=== PATIENT | male | born 1975 | race Hispanic/Latino ===

== ENCOUNTER 2020-04-08 09:47 | Observation (INO) | payer OTHER ==
[~2020-04-08] VITALS: Ht 175.3 cm; Wt 100.5 kg
--- NOTE | 2020-04-08 09:50 | NUR ---
TO ROOM VIA EMS.
[2020-04-08 10:11] LABS: HEMATOCRIT 47.7 % (39.0-50.0); HEMOGLOBIN 15.7 g/dl (14.0-18.0); IMMATURE GRANULOCYTES 0.5 % (0.0-5.0); MEAN CELL VOLUME 91.2 fL CALC (80.0-100.0); MEAN CORPUSCULAR HGB CONC 32.9 g/dL CAL (32.0-36.0); NEUT# 8.06 thou/uL (1.82-7.42); RED BLOOD COUNT 5.23 mill/uL (4.70-6.10); RED CELL DISTRI WIDTH 14.1 % (11.5-15.5)
[2020-04-08] MEDS ORDERED: AMLODIPINE BESYL5 MG PO (10:28)
--- NOTE | 2020-04-08 10:35 | NUR ---
PT RESTING IN BED. IV MEDS INFUSING WITHOUT DIFFICULTY. STABLE ON MONITOR.
[2020-04-08 10:36] LABS: ALBUMIN 4.2 g/dL (3.2-5.0); ALKALINE PHOSPHATASE 51 u/l (38-126); ANION GAP 15 (6-22 (CALC)); BILIRUBIN, TOTAL 0.7 mg/dL (0.0-1.4); BUN 16 mg/dL (9-20); BUN/CREATININE RATIO 16 (12-20 (CALC)); CARBON DIOXIDE 21 mmol/l (22-30); CHLORIDE 102 mmol/l (95-108); GFR > 60 ML/MIN (>=60 (CALC)); GFR FOR AFR.AMER. > 60 ML/MIN (>=60 (CALC)); LIPASE 349 u/l (23-300); POTASSIUM 3.9 mmol/l (3.5-5.1); SGOT/AST 59 u/l (17-59); SODIUM 133 mmol/l (137-146); TOTAL PROTEIN 7.7 g/dL (6.3-8.2)
[2020-04-08 10:37] LABS: ACT PARTIAL THROMBO TIME 27.6 SECONDS (20.0-32.5); PROTHROMBIN TIME 10.3 SECONDS (9.0-12.5)
[2020-04-08 10:58] LABS: D-DIMER 0.48 mg/L (0.19-0.60)
--- NOTE | 2020-04-08 11:52 | NUR ---
IV MEDS CONTINUE TO INFUSE. NO DISTRESS NOTED. BREATHING IMPROVED. CALL LIGHT WITHIN REACH.
--- NOTE | 2020-04-08 13:01 | NUR ---
RECIEVED REPORT FROM JUNE, RN
--- NOTE | 2020-04-08 13:02 | NUR ---
REPORT GIVEN TO SANDY GROSS. PT ADMITTED TO [facility] [id number].
--- NOTE | 2020-04-08 13:16 | NUR ---
PT ARRIVED TO [facility] ROOM [id number] ACCOMPAINED BY JUNE IN STABLE CONDITION. INTRODUCED SELF TO PT AND DISCUSSED POC. PT IS A/O X3 AND KHMER SPEAKING ONLY, SUZY AT BEDSIDE TO ASSIST WITH TRANSLATION. ASSESSMENT AND VITALS COMPLETED. BP 134/72, HR 84 O2 95% ON 2L NC. RESPIRATIONS ARE EVEN AND UNLABORED. LUNG SOUNDS CLEAR. HEART RHYTHM NORMAL WITH TELE IN PLACE. BOWEL SOUNDS ARE ACTIVE, LAST REPORTED BM 04/08/20. RADIAL AND PEDAL PULSES ARE STRONG. #20G IN LEFT HAND FLUSHED, SITE APPEARS HEALTHY AND PATENT. SKIN IS WARM/DRY AND INTACT WITH NO BREAKDOWN NOTED. GUN SYNCHRONIZER INFORMED THAT PT WAS TESTED POSITIVE AT A MEDICAL CENTER IN [place]. PT DENIES OF ANY PAINS OR DISCOMFORTS AT THIS TIME.PT ORIENTED TO ROOM AND CALL LIGHT SYSTEM. PT DENIES ANY ALLERGIES. ALLERGY BAND APPLIED. ALL SAFETY PRECAUTIONS ARE IN PLACE WITH CALL LIGHT IN REACH. WILL CONTINUE TO MONITOR.
[2020-04-08 13:50] VITALS: BP 134/72
--- NOTE | 2020-04-08 16:48 | NUR ---
PT SLEEPING IN LOW FOWLERS POSITION. RESPIRATIONS ARE EVEN AND UNLABORED ON 2L NC. NO SIGNS OF ANY PAINS OR DISCOMFORTS. ALL SAFTEY AND ISOALTION PRECAUTIONS ARE IN PLACE WITH CALL LIGHT IN REACH. WILL CONTINUE TO MONITOR
--- NOTE | 2020-04-08 19:55 | NUR ---
PHYSICAL ASSESMENT COMPLETE. PT CURRENTLY DENIES PAIN OR DISCOMFORT. SCHEDULED MEDICATIONS AND PRN MEDICATION ADMINISTERED, SEE E-MAR. PT DENIES ANY NEEDS AT THIS TIME. PLAN OF CARE REVIEWED, PT DENIES QUESTIONS, VERBALIZES UNDERSTANDING. ITEMS WITHIN REACH, BED LOCKED IN LOW POSITION W/ BEDRAILS UP X2. CALL SEGURA WITHIN REACH, AGREES TO CALL PRN.
[2020-04-08 20:00] VITALS: BP 131/73
[2020-04-09] VITALS: BP 149/94
--- NOTE | 2020-04-09 00:03 | NUR ---
PT LAYING IN BED WITH EYES CLOSED, APPEARS TO BE SLEEPING, APPEARS COMFORTABLE AND IN NO DISTRESS. RESPIRATIONS REGULAR AND UNLABORED. ITEMS REMAIN WITHIN REACH, CALL SEGURA REMAINS WITHIN REACH. BED REMAINS LOCKED AND IN LOW POSITION WITH BEDRAILS UP X2. WILL CONTINUE TO MONITOR.
--- NOTE | 2020-04-09 03:59 | NUR ---
PT RESTING IN BED, NO SIGNS OF DISTRESS NOTED, RESP EVEN AND UNLABORED. PT VOICES NO NEEDS OR COMPLAINTS AT THIS TIME. CALL LIGHT IN REACH, CONTINUE TO MONITOR.
[2020-04-09 04:00] VITALS: BP 140/71
[2020-04-09 05:48] LABS: HEMATOCRIT 48.8 % (39.0-50.0); HEMOGLOBIN 15.5 g/dl (14.0-18.0); IMMATURE GRANULOCYTES 0.4 % (0.0-5.0); MEAN CELL VOLUME 93.7 fL CALC (80.0-100.0); MEAN CORPUSCULAR HGB 29.8 pG CALC (26.0-32.0); MEAN CORPUSCULAR HGB CONC 31.8 g/dL CAL (32.0-36.0); NEUT# 10.29 thou/uL (1.82-7.42); RED BLOOD COUNT 5.21 mill/uL (4.70-6.10); RED CELL DISTRI WIDTH 13.8 % (11.5-15.5)
[2020-04-09 05:57] LABS: ALBUMIN 3.8 g/dL (3.2-5.0); ALKALINE PHOSPHATASE 51 u/l (38-126); BILIRUBIN, TOTAL 0.5 mg/dL (0.0-1.4); BUN 23 mg/dL (9-20); BUN/CREATININE RATIO 24 (12-20 (CALC)); CHLORIDE 104 mmol/l (95-108); GFR > 60 ML/MIN (>=60 (CALC)); GFR FOR AFR.AMER. > 60 ML/MIN (>=60 (CALC)); SGOT/AST 53 u/l (17-59); TOTAL PROTEIN 6.7 g/dL (6.3-8.2)
[2020-04-09 06:01] LABS: SODIUM 140 mmol/l (137-146)
[2020-04-09 06:02] LABS: ANION GAP 13 (6-22 (CALC)); CARBON DIOXIDE 28 mmol/l (22-30); POTASSIUM 5.2 mmol/l (3.5-5.1)
--- NOTE | 2020-04-09 08:08 | NUR ---
PT CONSENTED TO RECEIVE PNEUMONIA VAX, BUT BASED ON PT AGE AND COMORBIDITIES/RISK FACTORS, PT IS NOT A CANDIDATE UNTIL AGE 65.
[2020-04-09 08:50] VITALS: BP 135/69
--- NOTE | 2020-04-09 08:50 | NUR ---
PT LAYING IN BED. A&O X3. O2 VIA NC @2L IN PLACE, SHALLOW BREATHING NOTED. FLUSHED IN APPEARANCE, LOW GRADE TEMP OF 99.0. COVERS REMOVED. IS DEVICE GIVEN TO PT, GOAL SET AT 1500, PT DEMONSTRATES PROPER USE OF DEVICE. PT ENCOURAGED TO LAY IN PRONE POSITION. EXCERTIONAL SOB ALSO VERBALIZED BY PT. CLEAR/DIMINISHED BREATH SOUNDS HEARD UPON AUSCULTATION. INDUSTRIAL HYGIENE ENGINEER IN PLACE. #20 LH EMS SITE IN PLACE HEALTHY AND PATENT. ASSESSMENT COMPLETED DISCUSSED POC. CALL LIGHT IN REACH. CONTINUE TO MONITOR.
--- NOTE | 2020-04-09 09:03 | NUR ---
DR QUIROS AND Wendi ADRIAN APRN AT BEDSIDE DISCUSSING POC
[2020-04-09 10:58] VITALS: BP 133/75
--- NOTE | 2020-04-09 11:55 | NUR ---
PT SITTING IN BED, USING IS DEVICE. NO DISTRESS NOTED. NO NEEDS AT THIS TIME. CALL LIGHT LEFT WITHIN REACH.
--- NOTE | 2020-04-09 13:51 | NUR ---
ASSISTED PT TO PRONE POSITION, PT TOLERATED WELL. CHIEF EXECUTIVE OR MANAGING DIRECTOR PLACED TO BACK FOR COMFORT. CALL LIGHT LEFT WITHIN REACH.
[2020-04-09 14:55] VITALS: BP 138/68
--- NOTE | 2020-04-09 15:39 | NUR ---
PT LAYING IN BED. NO DISTRESS OR NEEDS AT THIS TIME. CALL LIGHT LEFT WITHIN REACH.
[2020-04-09 19:00] VITALS: BP 153/64
--- NOTE | 2020-04-09 21:06 | NUR ---
PT MEDICATED ORDERS PROVIDE AND ASSESSMENT COMPLETED AT THIS TIME. TRANSLATION PROVIDED BY HI FONG. NO S/O DISTRESS NOTED AT THIS TIME. PT DENIES FEELING SOB OR HAVING DIFFICULTY BREATHING. DENIES PAIN/N/V AT THIS TIME. CALL LIGHT IS AT SIDE AND PT ENCOURAGED TO CALL. ADDITIONAL BLANKET PROVIDED PER REQUEST AND ICEWATER REPLENISHED AT THIS TIME.
[2020-04-10] VITALS: BP 148/69
--- NOTE | 2020-04-10 00:55 | NUR ---
ENTEREND ROOM. DENIES ANY NEEDS. PT WAS AWAKE WATCHING TV. NO S/O DISTRESS NOTED.
[2020-04-10 04:54] VITALS: BP 136/66
[2020-04-10 09:10] VITALS: BP 143/73
--- NOTE | 2020-04-10 09:10 | NUR ---
PT SITTING IN BED. A&O X3. SHALLOW BREATHING NOTED, O2 VIA NC @2L IN PLACE. PT REPORTS TO BE FEELING A "LITTLE" BETTER THIS MORNING. IS DEVICE AT BEDSIDE, PT DEMONSTRATES MINIMAL EFFORT ACHIEVING 500 ML, GOAL SET AT 1000 ML. EDUCATED PT ON IMPORTANCE OF PRONING, PT AGREEABLE TO PRONE AGAIN TODAY AND TO SIT UP IN CHAIR. PT FLUSHED IN APPEARANCE, AFEBRILE. PELLETISING EXTRUDER OPERATOR COUGH NOTED. EDUCATED PT ON LOVENOX. POSTERIOR WHEEZING/DIMINISHED HEARD UPON AUSCULTATION, CLEAR/DIMINISHED ANTERIOR. PT REPORTS EPISODE OF DIARRHEA THIS MORNING. ASSESSMENT COMPLETED. DISCUSSED POC. CALL LIGHT LEFT WITHIN REACH.
--- NOTE | 2020-04-10 09:18 | NUR ---
DR QUIROS AND Wendi ADRIAN APRN AT BEDSIDE DISCUSSING POC
[2020-04-10 11:24] VITALS: BP 110/66
--- NOTE | 2020-04-10 13:31 | NUR ---
PT SLEEPING IN BED. NO DISTRESS NOTED. CALL LIGHT LEFT WITHIN REACH.
[2020-04-10 15:18] VITALS: BP 122/65
--- NOTE | 2020-04-10 18:23 | NUR ---
O2 TITRATED TO 4L VIA NC. O2 SUSTAINING 92%. CALL LIGHT LEFT WITHIN REACH.
[2020-04-10 19:11] VITALS: BP 123/70
--- NOTE | 2020-04-10 20:24 | NUR ---
PT MEDICATED ORDERS PROVIDE AND ASSESSMENT COMPLETED AT THIS TIME. NO S/O DISTRESS NOTED. REDNESS/FLUSHING TO FACE OBSERVED AT THIS TIME/UNCHANGED. BLANKET PROVIDED FOR COMFORT/REQUEST. LUNG SOUNDS ARE CLEAR, OXYGEN IS ON @4LNC. NO DISTRESS. PT DENIES FEELING SOB AT THIS TIME. CALL LIGHT AT SIDE AND PT ENCOURAGED TO CALL NEEDS ARISE.
[2020-04-11] VITALS: BP 133/58
--- NOTE | 2020-04-11 00:10 | NUR ---
PT WAS AWAKE WATCHING TV WITH LIGHTS TURNED DOWN. SAP DIRECTOR PLACEMENT CORRECTED AND NEW LEAD PLACED. V/S ASSESSED AT THIS TIME. PT DENIES ANY OTHER NEEDS. CALL LIGHT AT SIDE.
--- NOTE | 2020-04-11 02:32 | NUR ---
pt appears to be sleeping at this time. no s/o distress noted.
[2020-04-11 04:00] VITALS: BP 123/73
--- NOTE | 2020-04-11 05:25 | NUR ---
PT SLEEPING, AWOKE TO MY ENTERING ROOM, DENIED ANY NEEDS AT THIS TIME. OXYGEN TITRATED DOWN TO 3L FROM 4. WILL MONITOR FOR OXYGEN SAT LEVELS.
[2020-04-11 06:22] LABS: HEMATOCRIT 47.2 % (39.0-50.0); IMMATURE GRANULOCYTES 0.6 % (0.0-5.0); MEAN CORPUSCULAR HGB 29.9 pG CALC (26.0-32.0); MEAN CORPUSCULAR HGB CONC 31.8 g/dL CAL (32.0-36.0); NEUT# 8.84 thou/uL (1.82-7.42); RED BLOOD COUNT 5.02 mill/uL (4.70-6.10); RED CELL DISTRI WIDTH 13.9 % (11.5-15.5)
--- NOTE | 2020-04-11 06:52 | NUR ---
REPORT REC FROM ERMELINDA GAVIN
[2020-04-11 06:59] LABS: ALBUMIN 3.4 g/dL (3.2-5.0); ALKALINE PHOSPHATASE 56 u/l (38-126); ANION GAP 14 (6-22 (CALC)); BILIRUBIN, TOTAL 0.6 mg/dL (0.0-1.4); BUN 23 mg/dL (9-20); BUN/CREATININE RATIO 27 (12-20 (CALC)); C-REACTIVE PROTEIN 5.7 mg/dL (0-0.9); CARBON DIOXIDE 24 mmol/l (22-30); CHLORIDE 105 mmol/l (95-108); CREATININE 0.8 mg/dL (0.7-1.3); GFR > 60 ML/MIN (>=60 (CALC)); GFR FOR AFR.AMER. > 60 ML/MIN (>=60 (CALC)); SGOT/AST 50 u/l (17-59); SODIUM 139 mmol/l (137-146); TOTAL PROTEIN 6.2 g/dL (6.3-8.2)
[2020-04-11 07:58] VITALS: BP 123/77
--- NOTE | 2020-04-11 07:58 | NUR ---
PT SITTING IN BED. A&O X3. O2 VIA NC @3L IN PLACE, O2 TITRATED TO 2L PT SUSTAINING 92-93%. SHALLOW BREATHING NOTED. FLUSHED IN APPEARANCE BUT AFEBRILE AT THIS TIME. PT DEMONSTRATING PROPER USE OF IS DEVICE. IMPROVEMENT MADE ON ACHIEVEMENT COMPARED TO YESTERDAY, PT ACHIEVING 1000ML X8 REPITITIONS, NEW GOAL SET AT 1500 ML.CLEAR/DIMINISHED BREATH SOUNDS HEARD UPON AUSCULTATION. ASSESSMENT COMPLETED. DISCUSSED POC. CALL LIGHT LEFT WITHIN REACH.
--- NOTE | 2020-04-11 08:52 | NUR ---
DR QUIROS AND Wendi ADRIAN APRN AT BEDSIDE DISCUSSING POC
[2020-04-11 11:41] VITALS: BP 113/68
--- NOTE | 2020-04-11 12:38 | NUR ---
PT SITTING IN CHAIR. NO DISTRESS NOTED. CALL LIGHT IN REACH.
[2020-04-11 16:15] VITALS: BP 131/80
--- NOTE | 2020-04-11 17:39 | NUR ---
PT SLEEPING IN BED. NO DISTRESS NOTED. CALL LIGHT WITHIN REACH.
[2020-04-11 19:00] VITALS: BP 119/72
--- NOTE | 2020-04-11 20:39 | NUR ---
PT IN BED WITH EYES OPEN AND ABLE TO MAKE NEEDS KNOWN. PT IS UKRAINIAN SPEAKING. NON PRODECTUVE COUGH NOTED. PT IS CONTINENT OD B/B AND ABLE TO TRANSFER SELF TO TOILET. NO RESPIRATORY DISTRESS NOTED. IV SITE IS INTACT AND NO S/S OF INFILTRATION AND INFECTION NOTED. CALL LIGHT WITHIN REACH. WILL CONTINUE TO OBSERVE.
[2020-04-12] VITALS: BP 131/75
--- NOTE | 2020-04-12 00:38 | NUR ---
PT IN BED WITH EYES OPEN. COMPLAINED OF SOB AND O2 SAT 84 % 4LNC OXYGEN LEVEL INCREASED T 6LNC AND O2 LEVELS CONTINUES TO BE LOWRESPIRATORY THERAPY ASSESSED RESIDENT ABD OXYGEN INCREASED TO 6LNC HIGH FLOW AND OXYGEN LEVEL UP TO 95%PT STATES HE IS BREATHING BETTER. CONTINENT OF B/B AND AMBULATES TO TOILET WITH NO ASSIST NEEDED. CALL LIGHT WITHIN REACH. WILL CONTINUE TO OBSERVE.
[2020-04-12 04:00] VITALS: BP 110/67
--- NOTE | 2020-04-12 04:25 | NUR ---
PT IN BED WITH EYES CLOSD. NO S/S OF DISTRESS NOTED. RESPIRATIONS ARE EVEN AND NON LABORED. DENIES PAIN OR DISCOMFORT. CALL LIGHT IS WITHIN REACH. TOLERATING HIGH FLOW OXYGEN WELL. WILL CONTINUE TO OBSERVE.
[2020-04-12 06:01] LABS: HEMATOCRIT 47.6 % (39.0-50.0); HEMOGLOBIN 15.3 g/dl (14.0-18.0); MEAN CELL VOLUME 92.8 fL CALC (80.0-100.0); MEAN CORPUSCULAR HGB 29.8 pG CALC (26.0-32.0); MEAN CORPUSCULAR HGB CONC 32.1 g/dL CAL (32.0-36.0); RED BLOOD COUNT 5.13 mill/uL (4.70-6.10); RED CELL DISTRI WIDTH 13.6 % (11.5-15.5)
[2020-04-12 06:32] LABS: ALBUMIN 3.3 g/dL (3.2-5.0); ALKALINE PHOSPHATASE 55 u/l (38-126); ANION GAP 14 (6-22 (CALC)); BILIRUBIN, TOTAL 0.6 mg/dL (0.0-1.4); BUN 22 mg/dL (9-20); BUN/CREATININE RATIO 26 (12-20 (CALC)); CARBON DIOXIDE 25 mmol/l (22-30); CHLORIDE 104 mmol/l (95-108); CREATININE 0.8 mg/dL (0.7-1.3); GFR > 60 ML/MIN (>=60 (CALC)); GFR FOR AFR.AMER. > 60 ML/MIN (>=60 (CALC)); POTASSIUM 5.1 mmol/l (3.5-5.1); SGOT/AST 32 u/l (17-59); SODIUM 138 mmol/l (137-146); TOTAL PROTEIN 6.1 g/dL (6.3-8.2)
[2020-04-12 07:26] VITALS: BP 111/67
--- NOTE | 2020-04-12 08:30 | NUR ---
PT SEEN SITTING UP AT BEDSIDE EATING BREAKFAST, ALERT AND ORIENTED X 3. LUNGS WITH CRACKLES HEARD LOWER LEFT, PT USES 6 LPM NC. PT SPEAKS SAUDI ARABIAN MOSTLY. NO COMPLAINTS, NO DISTRESS. AMBULATORY.
[2020-04-12 12:00] VITALS: BP 112/69
--- NOTE | 2020-04-12 14:41 | NUR ---
PT WEANED DOWN TO 3 LPM FROM 6 LPM, SATS IN THE LOW TO MID 90s. PT CONTINUES AMBULATORY IN ROOM DESIRED. EXTRA LONG HIGH FLOW TUBING PROVIDED SO THAT HE CAN MAKE IT ALL THE WAY TO BATHROOM.
[2020-04-12 15:41] VITALS: BP 115/76
--- NOTE | 2020-04-12 17:16 | NUR ---
PT REMAINS AT REST IN THE BED OR CHAIR, AMBULATES DESIRED. NO DISTRESS, NO SHORTNESS OF BREATH. PT REMAINS ON 3 LPM.
[2020-04-12 19:15] VITALS: BP 121/70
--- NOTE | 2020-04-12 19:53 | NUR ---
PT IN BED WITH EYES OPEN AND ABLE TO MAKE NEEDS KNOWN. SPEAKS GUAMANIAN. CONTINENT OF B/B. RESPIRATIONS ARE EVEN AND NONLABORED. CALL LIGHT WITHIN REACH. WILL CONTINUE TO OBSERVE
[2020-04-13 04:00] VITALS: BP 122/82
[2020-04-13 05:23] LABS: HEMATOCRIT 47.4 % (39.0-50.0); HEMOGLOBIN 15.3 g/dl (14.0-18.0); IMMATURE GRANULOCYTES 2.9 % (0.0-5.0); MEAN CELL VOLUME 91.7 fL CALC (80.0-100.0); MEAN CORPUSCULAR HGB 29.6 pG CALC (26.0-32.0); MEAN CORPUSCULAR HGB CONC 32.3 g/dL CAL (32.0-36.0); NEUT# 7.82 thou/uL (1.82-7.42); RED BLOOD COUNT 5.17 mill/uL (4.70-6.10); RED CELL DISTRI WIDTH 13.4 % (11.5-15.5)
--- NOTE | 2020-04-13 06:04 | NUR ---
PT IN BED WITH EYES CLOSED. NO S/S OF DISTRESS NOTED. MEDICATIONS GIVEN AND TOLERATED WELL. TELEMETRY DISCONTINUES LAST EVENING. NO COMPLICATIONS NOTED. CONTINENT OF B/B ANF TRANSFERS WITH NO ASSIST NEEDED. WILL CONTINUE TO OBSERVE
[2020-04-13 06:17] LABS: ALBUMIN 3.2 g/dL (3.2-5.0); ALKALINE PHOSPHATASE 55 u/l (38-126); ANION GAP 12 (6-22 (CALC)); BILIRUBIN, TOTAL 0.6 mg/dL (0.0-1.4); BUN 21 mg/dL (9-20); BUN/CREATININE RATIO 28 (12-20 (CALC)); C-REACTIVE PROTEIN 4.2 mg/dL (0-0.9); CARBON DIOXIDE 26 mmol/l (22-30); CHLORIDE 102 mmol/l (95-108); CREATININE 0.7 mg/dL (0.7-1.3); GFR > 60 ML/MIN (>=60 (CALC)); GFR FOR AFR.AMER. > 60 ML/MIN (>=60 (CALC)); SGOT/AST 25 u/l (17-59); SODIUM 136 mmol/l (137-146); TOTAL PROTEIN 6.1 g/dL (6.3-8.2)
[2020-04-13 07:45] VITALS: BP 122/77
--- NOTE | 2020-04-13 07:45 | NUR ---
PATIENT RESTING IN BED DENIES ANY NEEDS AT THIS TIME. O2 ON AT THIS TIME AT 3L AND SPO2 IS 93%. PAITNET DENIES ANY PAIN AND SIDERAILS ARE UP X 2 CALL LIGHT WITHIN REACH.
--- NOTE | 2020-04-13 11:20 | NUR ---
TURNED DOWN 02 AT THIS TIME TO 1.5 LITERS PATIENT ADVISED TO CALL OUT TO [facility] IF HE BECOMES SHORT OF BREATH. WILL CONTINUE TO MONITOR.
--- NOTE | 2020-04-13 11:39 | NUR ---
PATIENT O2 STAT AT THIS TIME ON 1.5 LITERS IS 89. THIS RESULT PROVIDED TO BEVERLEY WOLF AND MOVED PATINET BACK TO 2 LITERS OF 02 AT THIS TIME AND PATIENT'S O2 MOVED TO 92 %. PATIENT REMINDED TO DEEP BREATH AND KEEP 02 ON AT THIS TIME.
--- NOTE | 2020-04-13 12:17 | NUR ---
PATIENT SITTING UP IN CHAIR AT THIS TIME EATING LUNCH. PATIENT DENIES ANY PAIN AND HAS O2 ON AT 2 LITERS AT THIS TIME SP02 IS 93%. PATIENT ADVISE TO CONTACT NURSE IF PATIENT BECOMES SHORT OF BREATH AT ANY TIME.
[2020-04-13 15:00] VITALS: BP 108/58
--- NOTE | 2020-04-13 16:08 | NUR ---
PATIENT SITTING UP IN CHAIR AT THIS TIME CALL LIGHT WITHIN REACH O2 REMAINS ON AT 2 LITERS AND DENIES SHORTNESS OF BREATH AT THIS TIME.
--- NOTE | 2020-04-13 17:30 | NUR ---
IV ON RAC D/C AT THIS TIME DUE TO IV PROTOCOL. IV #20 CANNULA IN TIP INTACT. NEW IV STARTED #22 ON LEFT HAND AT THIS TIME.
[2020-04-13 19:25] VITALS: BP 123/75
--- NOTE | 2020-04-13 21:00 | NUR ---
PT IN BED WITH EYES CLOSED. NO S/S OF DISTRESS NOTED. RESPIRATION EVEN AND NON LABORED. DENIES PAIN AND DENIES DISCOMFORT. UP AD CATHERINE. CONTINENT OF B/B AND NO ASSIST NEEDED. ON LOVENOX THERAPY WITH NO S/S OF BLEEDING OR HEMORRHAGE. CALL LIGHT IS WITHIN REACH. WILL CONTINUE TO OBSERVE.
--- NOTE | 2020-04-14 02:56 | NUR ---
IN BED WITH NO S/S OF DISTRESS NOTED. RESPIRATION EVEN AND NON LABORED. CALL LIGHT WITHIN REACH. WILL CONTINUE TO OBSERVE.
[2020-04-14 04:34] LABS: HEMATOCRIT 45.8 % (39.0-50.0); HEMOGLOBIN 15.2 g/dl (14.0-18.0); MEAN CELL VOLUME 91.1 fL CALC (80.0-100.0); MEAN CORPUSCULAR HGB 30.2 pG CALC (26.0-32.0); MEAN CORPUSCULAR HGB CONC 33.2 g/dL CAL (32.0-36.0); RED BLOOD COUNT 5.03 mill/uL (4.70-6.10); RED CELL DISTRI WIDTH 13.5 % (11.5-15.5)
[2020-04-14 04:57] LABS: ALBUMIN 3.3 g/dL (3.2-5.0); ALKALINE PHOSPHATASE 50 u/l (38-126); ANION GAP 12 (6-22 (CALC)); BILIRUBIN, TOTAL 0.6 mg/dL (0.0-1.4); BUN 19 mg/dL (9-20); BUN/CREATININE RATIO 20 (12-20 (CALC)); CARBON DIOXIDE 28 mmol/l (22-30); CHLORIDE 99 mmol/l (95-108); GFR > 60 ML/MIN (>=60 (CALC)); GFR FOR AFR.AMER. > 60 ML/MIN (>=60 (CALC)); SGOT/AST 23 u/l (17-59); SODIUM 135 mmol/l (137-146); TOTAL PROTEIN 6.1 g/dL (6.3-8.2)
[2020-04-14 05:15] VITALS: BP 115/72
--- NOTE | 2020-04-14 05:43 | NUR ---
PT IN BED WITH EYES CLOSED. NO S/S OF DISTRESS NOTED. DENIES PAIN AND DISCOMFORT. RESPIRATION ARE EVEN AND NON LABORED. CALL LIGHT IS WITHIN REACH. WILL CONTINUE TO OBSERVE
[2020-04-14 07:20] VITALS: BP 118/72
--- NOTE | 2020-04-14 07:20 | NUR ---
PATIENT LAYING IN BED AT THIS TIME. PATIENT DENIES ANY PAIN OR NEEDS. ISOBUTYLENE OPERATOR CHIEF DONE SEE INTERVENTIONS. RESPIRATION EASY AND UNLABORED AT THIS TIME. LUNG SOUNDS SLIGHTLY DIMINISHED IN LOWER BASES AND CLEAR IN UPPER FIELD. 02 ON AT 2L AND SPO2 IS 95% AT THIS TIME. PATIENT DENIES SHORTNESS OF BREATH AND SIDERAILS ARE UPX2 AND CALL LIGHT WITHIN REACH.
--- NOTE | 2020-04-14 11:45 | NUR ---
PATIENT SITTING UP IN CHAIR WATCHING TV AND USING INSENTIVE SPIROMETER. PATIENT DENIES ANY PAIN AND OR NEEDS. CALL LIGHT IS WITHIN REACH 02 REMAINS ON AT 2 LITERS AT THIS TIME.
--- NOTE | 2020-04-14 14:00 | NUR ---
6 MIN. WALK TEST PERFORMED AT THIS TIME. AT REST SPO2 WAS 94% WHILE WALKING 02 OFF OF 02 SPO2 DROPPED TO 84% REPLACED O2 AND SPO2 WENT UP TO 92% AND AT FINAL REST WITH O2 SPO2 WENT TO 93%. ALL FINDING WERE RELAYED TO PROVIDER AND TO SUPPLY CATALOGUER.
[2020-04-14 15:00] VITALS: BP 111/67
[2020-04-14] MEDS ORDERED: DECADRON6 MG PO ×2 (15:16→16:21)
[2020-04-14] MEDS ORDERED: ZITHROMAX500 MG PO ×2 (15:32→16:21)
--- NOTE | 2020-04-14 15:54 | NUR ---
PATIENT SITTING IN CHAIR AT THIS TIME. PATIENT HAS BEEN D/C AND WILL GO HOME ON 02. PATIENT VERBALIZES UNDERSTANDING OF D/C AT THIS TIME AND DENIES ANY NEEDS.
[2020-04-14] MEDS ORDERED: AMLODIPINE BESYL5 MG PO (16:21)
--- NOTE | 2020-04-14 16:34 | NUR ---
PATIENT D/C AT THIS TIME VERBALIZES UNDERSTANDING OF D/C INSTRUCTIONS AND PRESCRIPTIONS GIVEN. PATIENTS IV D/C AND IV CANNULA INTACT AND IV SITE HAS NO SIGNS OF IV SITE INFECTION. PATIENT INSTRUCTED ON HOME 02 AT THIS TIME AND VERBALIZES UNDERSTANDING.
--- NOTE | 2020-04-14 17:21 | NUR ---
Discharge instructions given. Patient verbalizes understanding of same. Discharged in stable condition via Wheelchair to Home with friend. All belongings sent with pt.
== END 2020-04-14 17:21 | disposition home or self-care (01) | DRG 177 ==
LOC: ED 09:47 → ED-I 10:44 → ED 11:36 → MS2 11:37
PROVIDERS: Nurse Practitioner; Nurse Practitioner Family; ADMIT Internal Medicine; ATTEND Internal Medicine
PROC: XW033E5 Introduction of Remdesivir Anti-infective into Peripheral Vein, Percutaneous Approach, New Technology Group 5 (ICD-10-PCS; principal; 2020-04-09)
PROC: 3E02340 Introduction of Influenza Vaccine into Muscle, Percutaneous Approach (ICD-10-PCS; 2020-04-09)
DX: U07.1 COVID-19 (principal); J12.82 Pneumonia due to coronavirus disease 2019; J96.01 Acute respiratory failure with hypoxia; I10 Essential (primary) hypertension; R43.8 Other disturbances of smell and taste; R19.7 Diarrhea, unspecified; Z23 Encounter for immunization
CPT/HCPCS: G0378; J1650; Q9967